=== PATIENT | male | born 1950 | race Two or more races ===

== ENCOUNTER 2017-12-05 05:56 | Emergency (ER) | payer OTHER ==
[~2017-12-05] VITALS: Ht 167.6 cm; Wt 94.3 kg
[2017-12-05] MEDS ORDERED: COZAAR50 MG (06:21)
[2017-12-05] MEDS ORDERED: FLONASE SENSIM9.9 ML (06:22)
== END 2017-12-05 10:06 | disposition home or self-care (01) ==
LOC: ER 05:56
DX: J30.89 Other allergic rhinitis (principal)

== ENCOUNTER 2020-01-11 07:37 | Emergency (ER) | payer OTHER ==
[~2020-01-11] VITALS: Ht 167.6 cm; Wt 96.2 kg
[~2020-01-11 07:37] MED LIST: COZAAR50 MG; FLONASE SENSIM9.9 ML
[2020-01-11] MEDS ORDERED: CRESTOR40 MG (08:08)
[2020-01-11] MEDS ORDERED: VISTARIL50 MG PO (08:39)
== END 2020-01-11 09:08 | disposition home or self-care (01) ==
LOC: ER 07:37
DX: I16.1 Hypertensive emergency (principal); I10 Essential (primary) hypertension; F43.8 Other reactions to severe stress

== ENCOUNTER 2022-03-16 15:24 | Emergency (ER) | payer OTHER ==
[~2022-03-16] VITALS: Ht 167.6 cm; Wt 97.1 kg
[~2022-03-16 15:24] MED LIST changes: +CRESTOR40 MG; +VISTARIL50 MG PO
== END 2022-03-16 20:53 | disposition home or self-care (01) ==
LOC: ER 15:24
DX: S01.122A Laceration with foreign body of left eyelid and periocular area, initial encounter (principal); W17.89XA Other fall from one level to another, initial encounter; Y93.11 Activity, swimming; Y92.34 Swimming pool (public) as the place of occurrence of the external cause; I10 Essential (primary) hypertension; Z91.013 Allergy to seafood

== ENCOUNTER 2024-01-24 10:08 | Emergency (ER) | payer OTHER ==
[~2024-01-24] VITALS: Ht 167.6 cm; Wt 95.3 kg
[2024-01-24] MEDS ORDERED: ACETAMINOPHEN 500 MG GEL..CAP PO STA (12:55)
[2024-01-24] MEDS ORDERED: KETOROLAC TROMETHAMINE 30 MG VIAL IM STA (12:56)
[2024-01-24] MEDS ORDERED: IBU800 MG PO (15:24)
== END 2024-01-24 15:33 | disposition home or self-care (01) ==
LOC: ER 10:08
DX: R51.9 Headache, unspecified (principal); I10 Essential (primary) hypertension; Z91.013 Allergy to seafood
CPT/HCPCS: 70450; 96372; 99284; J1885